=== PATIENT | female | born 1980 | race African-American/Black ===

== ENCOUNTER 2023-02-01 15:58 | Inpatient (IN) | payer MEDICAID ==
[~2023-02-01] VITALS: Ht 170.2 cm; Wt 74.8 kg
[2023-02-01 16:47] LABS: BASOPHILS % 0.8 % (0.0-2.0); EOSINOPHILS % 0.3 % (0.0-5.0); LYMPHOCYTES % 21.3 % (20.0-50.0); MEAN CORPUSCULAR HEMOGLOBIN 13.2 pg (28.0-32.0); MEAN CORPUSCULAR VOLUME 51.9 fL (81.0-99.0); MEAN PLATELET VOLUME 8.4 fl (7.4-10.4); MONOCYTES % 4.8 % (2.0-8.0); NEUTROPHILS % 72.8 % (40.0-76.0); PLATELET 539 x1000/uL (130-400); RED BLOOD CELL COUNT 2.23 mill/uL (4.2-5.4); RED CELL DISTRIBUTION WIDTH 21.2 % (11.6-14.6)
[2023-02-01 16:54] LABS: HEMATOCRIT. 11.6 % (36.0-48.0)
[2023-02-01 17:02] LABS: CHLORIDE 104 mEq/L (98-107)
[2023-02-01 17:17] LABS: PLATELET ESTIMATE INCREASED
[2023-02-01 18:01] LABS: HCG SCREEN NEGATIVE
[2023-02-01 18:50] LABS: T4 FREE 1.09 ng/dL (0.76-1.46)
[2023-02-01 19:12] LABS: VITAMIN B12 SERUM 442 pg/mL (211-911)
[2023-02-01 19:29] LABS: CLARITY URINE TURBID (CLEAR); COLOR URINE RED (YELLOW); KETONES URINE NEGATIVE (NEGATIVE); LEUKOCYTE ESTERASE URINE 3+ (NEGATIVE); NITRITE URINE NEGATIVE (NEGATIVE); OCCULT BLOOD URINE 3+ (NEGATIVE); PROTEIN URINE 2+ (NEGATIVE); SPECIFIC GRAVITY URINE 1.015 (1.005-1.030); UROBILINOGEN URINE 0.2 E.U./dL (0.2-1.0)
[2023-02-01 19:55] LABS: *AMPHETAMINES SCREEN URINE NEGATIVE (NEGATIVE); *BARBITURATES SCREEN URINE NEGATIVE (NEGATIVE); *BENZODIAZEPINES SCREEN URINE NEGATIVE (NEGATIVE); *COCAINE SCREEN URINE NEGATIVE (NEGATIVE); CANNABINOID URINE SCREEN NEGATIVE (NEGATIVE); METHADONE URINE SCREEN NEGATIVE (NEGATIVE); OPIATES URINE SCREEN NEGATIVE (NEGATIVE); PHENCYCLIDINE URINE SCREEN NEGATIVE (NEGATIVE)
[2023-02-01] MEDS ORDERED: ACETAMINOPHEN 325MG TABLET PO PRN (21:15)
[2023-02-01] MEDS ORDERED: ONDANSETRON HCL 4MG/2ML INJ IV PRN (21:15)
[2023-02-01] MEDS ORDERED: MAGNESIUM/ALUMINUM HYDROXIDE/SIMETHICONE 30ML UDC PO PRN (21:15)
[2023-02-01] MEDS ORDERED: DOCUSATE SODIUM 100MG CAPSULE PO PRN (21:15)
[2023-02-01] MEDS ORDERED: NALOXONE HCL 0.4MG/ML VIAL IV PRN (21:45)
[2023-02-01] MEDS: FAMOTIDINE 20MG TABLET PO SCH (21:47)
[2023-02-01] MEDS ORDERED: CEFTRIAXONE 1GM PREMIX 50 ML IV NR (23:00)
[2023-02-01] MEDS ORDERED: POTASSIUM CHLORIDE 10MEQ TABLET SR PO NR (23:00)
[2023-02-01] MEDS: IRON SUCROSE COMPLEX 100 MG/5 ML ML IV SCH (23:53)
[2023-02-02] VITALS (12 sets, daily range): BP systolic 110–139; BP diastolic 56–88
[2023-02-02 00:43] LABS: HEMATOCRIT 14.3 % (36.0-48.0); HEMOGLOBIN 4.5 g/dL (12.0-16.0)
[2023-02-02 07:17] LABS: EOSINOPHILS % 0.3 % (0.0-5.0); LYMPHOCYTES % 21.9 % (20.0-50.0); MEAN CORPUSCULAR HEMOGLOBIN 20.5 pg (28.0-32.0); MEAN PLATELET VOLUME 8.5 fl (7.4-10.4); MONOCYTES % 8.3 % (2.0-8.0); NEUTROPHILS % 68.5 % (40.0-76.0); PLATELET 424 x1000/uL (130-400); RED BLOOD CELL COUNT 3.04 mill/uL (4.2-5.4); RED CELL DISTRIBUTION WIDTH 33.5 % (11.6-14.6)
[2023-02-02 07:25] LABS: CHLORIDE 112 mEq/L (98-107)
[2023-02-02 07:34] LABS: HEMOGLOBIN. 6.3 g/dL (12.0-16.0); PHOSPHORUS 2.9 mg/dL (2.5-4.9); T4 FREE 1.15 ng/dL (0.76-1.46)
[2023-02-02 07:35] LABS: HEMATOCRIT. 19.6 % (36.0-48.0)
[2023-02-02] MEDS: KETOROLAC 15MG/ML VIAL IV PRN (08:40)
[2023-02-02 09:03] LABS: MEAN CORPUSCULAR VOLUME 64.3 fL (81.0-99.0)
[2023-02-02] MEDS ORDERED: POTASSIUM CHLORIDE 20MEQ/PACKET PO NR (09:30)
[2023-02-02] MEDS ORDERED: IRON SUCROSE COMPLEX 100 MG/5 ML ML IV SCH (10:00)
[2023-02-02] MEDS: FAMOTIDINE 20MG TABLET PO SCH ×2 (12:40→21:00)
[2023-02-02 17:11] LABS: HEMATOCRIT 22.8 % (36.0-48.0); HEMOGLOBIN 7.4 g/dL (12.0-16.0)
[2023-02-02] MEDS: HYDROCODONE/ACETAMINOPHEN 5/325MG TABLET PO PRN (21:10)
[2023-02-03] VITALS (15 sets, daily range): BP systolic 102–148; BP diastolic 45–83
[2023-02-03] MEDS: IRON SUCROSE COMPLEX 100 MG/5 ML ML IV SCH ×2 (00:26→23:00)
[2023-02-03 07:10] LABS: BASOPHILS % 0.8 % (0.0-2.0); EOSINOPHILS % 1.2 % (0.0-5.0); HEMATOCRIT. 29.9 % (36.0-48.0); HEMOGLOBIN. 9.8 g/dL (12.0-16.0); LYMPHOCYTES % 18.8 % (20.0-50.0); MEAN CORPUSCULAR VOLUME 73.1 fL (81.0-99.0); MEAN PLATELET VOLUME 8.6 fl (7.4-10.4); MONOCYTES % 9.7 % (2.0-8.0); NEUTROPHILS % 69.5 % (40.0-76.0); PLATELET 353 x1000/uL (130-400); RED CELL DISTRIBUTION WIDTH 31.7 % (11.6-14.6)
[2023-02-03 07:31] LABS: CHLORIDE 113 mEq/L (98-107)
[2023-02-03] MEDS: FAMOTIDINE 20MG TABLET PO SCH ×2 (08:18→21:44)
[2023-02-03] MEDS ORDERED: SENN-257 MT (09:01)
[2023-02-03] MEDS ORDERED: FERR325T6 MT (09:01)
[2023-02-03] MEDS ORDERED: PROPOFOL 200MG/20ML VIAL IV ONE (10:00)
[2023-02-03] MEDS ORDERED: MIDAZOLAM HCL 2 MG/2 ML VIAL ONE (10:01)
[2023-02-03] MEDS ORDERED: ROCURONIUM BROMIDE 10MG/ML VIAL 5ML IV ONE (10:02)
[2023-02-03] MEDS ORDERED: FENTANYL CITRATE/PF 50MCG/ML 2ML VIAL ONE (10:04)
[2023-02-03] MEDS ORDERED: SUCCINYLCHOLINE CHLORIDE 200MG/10ML IV ONE (10:07)
[2023-02-03] MEDS ORDERED: DEXAMETHASONE 4MG/ML 1ML VIAL ONE (10:24)
[2023-02-03] MEDS ORDERED: CEFAZOLIN SODIUM 1000MG/VIAL ONE (10:24)
[2023-02-03] MEDS ORDERED: ONDANSETRON HCL 4MG/2ML INJ ONE (10:24)
[2023-02-03] MEDS ORDERED: LIDOCAINE HCL 1% 20ML VIAL (Pyxis) INJ ONE (10:24)
[2023-02-03] MEDS ORDERED: KETOROLAC 30MG/ML VIAL ONE (10:30)
[2023-02-03] MEDS ORDERED: FENTANYL CITRATE/PF 50MCG/ML 2ML VIAL IV PRN (10:45)
[2023-02-03] MEDS ORDERED: HYDROMORPHONE HCL/PF 2MG/ML CPJ IV PRN (10:45)
[2023-02-03] MEDS ORDERED: MEPERIDINE HCL/PF 25MG/ML CPJ IV PRN (10:45)
[2023-02-03] MEDS ORDERED: ONDANSETRON HCL 4MG/2ML INJ IV PRN (10:45)
[2023-02-03] MEDS ORDERED: TRANEXAMIC ACID 1,000 MG/10 ML IV ONE (11:00)
[2023-02-03] MEDS ORDERED: TRANEXAMIC ACID 1,000 MG in SODIUM CHLORIDE 0.9% 100 ML IV SCH (11:30)
[2023-02-03] MEDS ORDERED: LIDOCAINE HCL 1% 10 MG/ML 10ML VIAL ONE (12:37)
[2023-02-03] MEDS ORDERED: IOHEXOL-300 100 ML BOTTLE ONE (12:43)
[2023-02-03 13:04] LABS: INR 1.1; PROTHROMBIN TIME 11.3 sec (9.6-11.0)
[2023-02-03] MEDS: HYDROCODONE/ACETAMINOPHEN 5/325MG TABLET PO PRN ×3 (14:05→23:09)
[2023-02-03 14:59] LABS: PLATELET ESTIMATE NORMAL
[2023-02-03] MEDS: KETOROLAC 15MG/ML VIAL IV PRN (15:10)
[2023-02-04] VITALS: BP 136/57
[2023-02-04 04:00] VITALS: BP 145/66
[2023-02-04] MEDS: HYDROCODONE/ACETAMINOPHEN 5/325MG TABLET PO PRN ×2 (05:27→10:01)
[2023-02-04 07:40] LABS: CHLORIDE 109 mEq/L (98-107)
[2023-02-04 07:49] LABS: BASOPHILS % 0.4 % (0.0-2.0); EOSINOPHILS % 0.7 % (0.0-5.0); HEMATOCRIT. 29.7 % (36.0-48.0); HEMOGLOBIN. 9.8 g/dL (12.0-16.0); LYMPHOCYTES % 20.8 % (20.0-50.0); MEAN CORPUSCULAR HEMOGLOBIN 24.6 pg (28.0-32.0); MEAN CORPUSCULAR VOLUME 74.2 fL (81.0-99.0); MONOCYTES % 8.7 % (2.0-8.0); NEUTROPHILS % 69.4 % (40.0-76.0); PLATELET 349 x1000/uL (130-400); RED BLOOD CELL COUNT 4.01 mill/uL (4.2-5.4); RED CELL DISTRIBUTION WIDTH 32.6 % (11.6-14.6)
[2023-02-04 08:00] VITALS: BP 140/71
[2023-02-04] MEDS: FAMOTIDINE 20MG TABLET PO SCH (08:27)
[2023-02-04 10:39] VITALS: BP 132/85
== END 2023-02-04 11:50 | disposition home or self-care (01) | DRG 517 ==
LOC: ER 15:58 → MICUSO 17:45 → 8WST 02-02 10:30
PROVIDERS: ADMIT Internal Medicine; ATTEND Internal Medicine
PROC: 30233N1 Transfusion of Nonautologous Red Blood Cells into Peripheral Vein, Percutaneous Approach (ICD-10-PCS; principal; 2023-02-01)
PROC: 0UDB7ZZ Extraction of Endometrium, Via Natural or Artificial Opening (ICD-10-PCS; 2023-02-03)
PROC: 04LF3DU Occlusion of Left Uterine Artery with Intraluminal Device, Percutaneous Approach (ICD-10-PCS; 2023-02-03)
PROC: B41G1ZZ Fluoroscopy of Left Lower Extremity Arteries using Low Osmolar Contrast (ICD-10-PCS; 2023-02-03)
DX: D25.9 Leiomyoma of uterus, unspecified (principal); E44.1 Mild protein-calorie malnutrition; E87.1 Hypo-osmolality and hyponatremia; E88.09 Other disorders of plasma-protein metabolism, not elsewhere classified; D62 Acute posthemorrhagic anemia; E87.6 Hypokalemia; D26.0 Other benign neoplasm of cervix uteri; D50.9 Iron deficiency anemia, unspecified; N39.0 Urinary tract infection, site not specified; N80.42 Endometriosis of rectovaginal septum with involvement of vagina; N39.3 Stress incontinence (female) (male); D72.829 Elevated white blood cell count, unspecified; D75.839 Thrombocytosis, unspecified; Z68.25 Body mass index [BMI] 25.0-25.9, adult; Z80.49 Family history of malignant neoplasm of other genital organs; N93.8 Other specified abnormal uterine and vaginal bleeding
CPT/HCPCS: 36415; 75774; 75898; 76830; 76856; 80048; 80053; 80305; 81003; 82607; 82746; 83540; 83550; 83735; 84100; 84439; 84443; 84703; 85014; 85018; 85025; 86850; 86900; 86920; 88305; 93005; 93970; 99285; C1725; C1730; C1760; C1769; C1893; J0330; J0690; J0696; J1100; J1644; J1885; J2250; J2405; J2704; J3010; J3490; J7050; P9016; Q9967

== ENCOUNTER 2023-02-14 13:02 | Emergency (ER) | payer MEDICAID ==
[~2023-02-14] VITALS: Ht 170.2 cm; Wt 78.0 kg
[~2023-02-14 13:02] MED LIST: FERR325T6 MT; SENN-257 MT
[2023-02-14 13:41] LABS: HEMATOCRIT. 35.2 % (36.0-48.0); HEMOGLOBIN. 11.6 g/dL (12.0-16.0); MEAN CORPUSCULAR HEMOGLOBIN 25.8 pg (28.0-32.0); MEAN CORPUSCULAR VOLUME 77.9 fL (81.0-99.0); MEAN PLATELET VOLUME 8.7 fl (7.4-10.4); PLATELET 320 x1000/uL (130-400); RED BLOOD CELL COUNT 4.52 mill/uL (4.2-5.4); RED CELL DISTRIBUTION WIDTH 30.7 % (11.6-14.6)
[2023-02-14 13:55] LABS: CHLORIDE 104 mEq/L (98-107)
[2023-02-14 14:08] LABS: HCG SCREEN NEGATIVE
[2023-02-14 14:17] LABS: PLATELET ESTIMATE NORMAL
[2023-02-14] MEDS: SODIUM CHLORIDE 0.9% 1,000 ML IV ONE (16:27)
[2023-02-14] MEDS: MORPHINE SULFATE 4 MG/ML CPJ (NOT FOR IM USE) IV STA (16:27)
[2023-02-14] MEDS: ONDANSETRON HCL 4MG/2ML INJ IV STA (16:27)
[2023-02-14 18:05] VITALS: BP 143/87; PULSE 113; RESP 20; TEMP 98.7
[2023-02-14] MEDS ORDERED: T3 PO (18:16)
[2023-02-14] MEDS ORDERED: CEPH500C2 MT (18:16)
[2023-02-14 18:45] LABS: CLARITY URINE CLOUDY (CLEAR); COLOR URINE YELLOW (YELLOW); KETONES URINE 2+ (NEGATIVE); LEUKOCYTE ESTERASE URINE 2+ (NEGATIVE); NITRITE URINE NEGATIVE (NEGATIVE); OCCULT BLOOD URINE 3+ (NEGATIVE); PH URINE 5.5 (4.5-8.0); PROTEIN URINE 1+ (NEGATIVE); SPECIFIC GRAVITY URINE 1.015 (1.005-1.030); UROBILINOGEN URINE 0.2 E.U./dL (0.2-1.0)
== END 2023-02-14 18:38 | disposition home or self-care (01) ==
LOC: ER 13:07
DX: D25.9 Leiomyoma of uterus, unspecified (principal)
CPT/HCPCS: 80053; 81003; 81025; 84703; 85025; 87086; 87186; 36415; 74176; 93005; 96361; 96374; 96375; 99285; J2405; J2270; J7030; Z7610 ×2